=== PATIENT | male | born 1985 | race Caucasian/White ===

== ENCOUNTER 2018-06-12 19:39 | Emergency (ER) | payer MEDICAID ==
[~2018-06-12] VITALS: Ht 177.8 cm; Wt 72.7 kg
[2018-06-12 19:41] VITALS: BP 132/91
[2018-06-12] MEDS ORDERED: HYDROcodone/acetaminophen 5mg/325mg tablet PO ONE (20:00)
== END 2018-06-12 20:14 | disposition home or self-care (01) ==
LOC: EEVIPCON 19:40 → ER 19:40
DX: S00.83XA Contusion of other part of head, initial encounter (principal); F12.90 Cannabis use, unspecified, uncomplicated; Y04.0XXA Assault by unarmed brawl or fight, initial encounter; Y93.89 Activity, other specified; Y92.89 Other specified places as the place of occurrence of the external cause; Y99.8 Other external cause status
CPT/HCPCS: 99282

== ENCOUNTER 2018-08-03 00:36 | Emergency (ER) | payer MEDICAID ==
[~2018-08-03] VITALS: Ht 177.8 cm; Wt 81.0 kg
[2018-08-03 00:40] VITALS: BP 147/90
== END 2018-08-03 01:23 ==
LOC: ER 00:37
DX: S30.810A Abrasion of lower back and pelvis, initial encounter (principal); S30.811A Abrasion of abdominal wall, initial encounter; R00.0 Tachycardia, unspecified; F12.90 Cannabis use, unspecified, uncomplicated; F17.200 Nicotine dependence, unspecified, uncomplicated; Z02.89 Encounter for other administrative examinations; W22.8XXA Striking against or struck by other objects, initial encounter; Y93.89 Activity, other specified; Y92.148 Other place in prison as the place of occurrence of the external cause; Y99.8 Other external cause status
CPT/HCPCS: 99283

== ENCOUNTER 2021-08-20 14:03 | Emergency (ER) | payer MEDICAID ==
[~2021-08-20] VITALS: Ht 175.3 cm; Wt 70.9 kg
[2021-08-20 14:33] VITALS: BP 136/100
[2021-08-20] MEDS ORDERED: PENI250T2 PO (14:36)
[2021-08-20] MEDS ORDERED: NAPR-56 PO (14:36)
[2021-08-20] MEDS ORDERED: HYDROcodone/acetaminophen 5mg/325mg tablet PO ONE (14:40)
== END 2021-08-20 14:48 | disposition home or self-care (01) ==
LOC: ER 14:04
DX: K08.89 Other specified disorders of teeth and supporting structures (principal); F12.10 Cannabis abuse, uncomplicated; Z79.899 Other long term (current) drug therapy
CPT/HCPCS: 99283